=== PATIENT | female | born 1975 | race Hispanic/Latino ===

== ENCOUNTER 2019-12-12 10:38 | Outpatient (CLI) | payer OTHER ==
--- NOTE | 2019-12-12 13:45 | CT ---
CT CHEST WITHOUT CONTRAST: INDICATION: Shortness of breath. COMPARISON: No comparison. FINDINGS: The lung steele appear well aerated and clear of infiltrate. No effusion. Mild interstitial thicken ing is seen peripherally. A 5 mm nodule in the right upper lobe, image 19 of 47. Small calcified nodule right middle lobe tahira uring 2-3 mm image 25. Mediastinum unremarkable. Images through the upper abdomen unremarkable. IMPRESSION: 1. Mild peripheral interstitial thickening which is nonspecific. 2. Noncalcified nodule in the right upper lobe and a calcified granuloma in the right middle lobe. Followup noncontrast chest CT in 6 months is recommended to confirm stability of the noncalcified nod ule. POS: [facility]W
== END 2019-12-12 10:39 | disposition home or self-care (01) ==
LOC: SCSCT 10:38
PROVIDERS: ATTEND Nurse Practitioner Family
DX: R06.02 Shortness of breath (principal); J84.10 Pulmonary fibrosis, unspecified; R91.1 Solitary pulmonary nodule; J84.89 Other specified interstitial pulmonary diseases
CPT/HCPCS: 71250